=== PATIENT | male | born 1945 | race Caucasian/White ===

== ENCOUNTER 2019-04-02 19:52 | Inpatient (IN) | payer OTHER | END 2019-04-07 17:30 | disposition home or self-care (01) | LOC: EDH 19:52 → 2AH 04-06 20:05 → EDHIP 22:20 → 3DH 23:26 | DX: I21.4 Non-ST elevation (NSTEMI) myocardial infarction (principal); I50.31 Acute diastolic (congestive) heart failure; I11.0 Hypertensive heart disease with heart failure; K21.9 Gastro-esophageal reflux disease without esophagitis; F10.20 Alcohol dependence, uncomplicated ==

== ENCOUNTER → 2019-06-02 | Outpatient (CLI) | payer OTHER ==
[~2019-06-02] MED LIST: AEC81 PO; CAL1TABL PO; DRON400T2 PO; FOLI1TAB15 PO; KRIL1CAP18 PO; LOSA25TA41 PO; METO50TA18 PO; MULT1CAP32 PO; NIAC250T2 PO; OMEP40CA37 PO; SLOMG PO; TAMS-1 PO; TICA90TA PO; WARF2TAB57 PO; WARF3TAB29 PO
== END | disposition home or self-care (01) ==
LOC: SHCH 09:25
PROVIDERS: ATTEND Internal Medicine Cardiovascular Disease
DX: I11.9 Hypertensive heart disease without heart failure (principal); I08.1 Rheumatic disorders of both mitral and tricuspid valves
CPT/HCPCS: 93306

== ENCOUNTER → 2019-11-20 | Outpatient (CLI) | payer OTHER ==
[~2019-11-20] MED LIST changes: -NIAC250T2 PO; +NIAC250T34 PO; +OMEP40CA13 PO; -OMEP40CA37 PO
== END | disposition home or self-care (01) ==
LOC: SHCH 13:38
PROVIDERS: ATTEND Internal Medicine Cardiovascular Disease
DX: I48.91 Unspecified atrial fibrillation (principal); I51.7 Cardiomegaly
CPT/HCPCS: 93306; 93356

== ENCOUNTER → 2024-10-25 | Outpatient (CLI) | payer MEDICARE ==
[~2024-10-25] MED LIST changes: -DRON400T2 PO; +DRON400T7 PO; -OMEP40CA13 PO; +OMEP40CA21 PO
[2024-10-25 12:43] LABS: ALBUMIN 3.3 g/dL (3.5-5.0); BILIRUBIN,TOTAL 0.7 mg/dL (0.2-1.0); CREATININE 1.4 mg/dL (0.5-1.3); MAGNESIUM 1.8 mg/dL (1.80-2.40); POTASSIUM 4.4 mmol/L (3.5-5.1); TOTAL PROTEIN, SERUM 6.5 g/dL (6.0-8.3)
== END | disposition home or self-care (01) ==
LOC: LAB 09:28
PROVIDERS: ATTEND Physician Assistant
DX: R06.00 Dyspnea, unspecified (principal)
CPT/HCPCS: 36415; 80053; 83735; 83880

== ENCOUNTER → 2024-10-27 | Outpatient (CLI) | payer MEDICARE | END | disposition home or self-care (01) | LOC: SHCH 15:46 | PROVIDERS: ATTEND Internal Medicine Cardiovascular Disease | DX: I25.5 Ischemic cardiomyopathy (principal); R06.00 Dyspnea, unspecified | CPT/HCPCS: 93306 ==

== ENCOUNTER → 2024-10-31 | Outpatient (CLI) | payer MEDICARE ==
[2024-10-31] MEDS: REGADENOSON 0.4 MG/5 ML PF SYG IVP ONE (13:01)
--- NOTE | 2024-10-31 18:37 | HMCSR ---
APPROVED REPORT Height: 6 ft 0in Weight: 217 lbs TEST INDICATIONS Dyspnea The imaging protocol used to acquire images was Rest Tc-99m/stress Tc-99m 1 day Consent: The procedure was explained and understood by the patient. Informerd consent was witnessed Sheri Martinez RN First, low dose rest was performed then high dose stress. RESTING DATA: The resting ekg shows: Atrial Fibrillation Rest SPECT myocardial perfusion imaging was performed in supine position 68 minutes following the int ravenous injection of 13.4 mCi of Tc-99 Sestamibi. Time of rest injection: 08:21: Date: 10/31/2024 Time of rest imagin:29: Date: 10/31/2024 PHARMACOLOGIC STRESS: Pharmacologic stress test was performed by injecting regadenoson 0.4 mg IV push followed by the intra venous injection of 31.3 mCi of Tc-99 Sestamibi. Time of stress injection: 09:53: Date: 10/31/2024 Time of stress imagin:08: Date: 10/31/2024 Heart Rate at time of stress injection: 67 bpm. Gated Stress SPECT was performed 75 minutes after stress injection. The images were gated to evaluate regional wall motion and calculate left ventricular ejection fracti on. STRESS DETAILS Reason for Termination: Infusion complete Stress Symptoms: Dyspnea, Flushing Max HR Achieved: 90 bpm % of APMHR Achieved: 64 Max Blood Pressure: 132/70 mmHg Stress ECG: Atrial Fibrillation Study quality was good. Lung uptake was Normal. Artifact: No artifact IMPRESSION Normal pharmacologic nuclear stress test. Conclusion Normal perfusion. LVEF 48%.
== END | disposition home or self-care (01) ==
LOC: SHCH 07:50
PROVIDERS: ATTEND Internal Medicine Cardiovascular Disease
DX: I48.91 Unspecified atrial fibrillation (principal); R06.00 Dyspnea, unspecified; R53.83 Other fatigue; R10.9 Unspecified abdominal pain; Z79.899 Other long term (current) drug therapy
CPT/HCPCS: 78452; 93017; J2785; A9500 ×2